=== PATIENT | female | born 2000 | race Caucasian/White ===

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

== ENCOUNTER 2018-07-12 17:30 | Emergency (ER) | payer OTHER, SELFPAY ==
[~2018-07-12] VITALS: Ht 180.3 cm; Wt 68.0 kg
[2018-07-12 17:34] VITALS: BP 106/66
--- NOTE | 2018-07-12 17:41 | PHYS DOC ---
Past Medical History Past Medical History: Anxiety, Depression Additional Past Medical Histor: LEAKY VALVE, ADHD, SEASONAL ALELRGIES Past Surgical History: Tonsillectomy, Other Additional Past Surgical Histo: ADENOIDS REMOVED Alcohol Use: None Drug Use: None Adult General Chief Complaint Chief Complaint: THUMB HPI HPI Patient is a 18 year old female presents to the ED complaining of right thumb injury times one hour ago. Patient states that she was working on her truck and her right thumb got caught and bent back. Describes the pain as sharp. Rates the pain as 6 out of 10. Denies laceration, paresthesias, weakness, fever, nailbed injury or swelling. Review of Systems Review of Systems Constitutional: Denies fever or chills [] Eyes: Denies change in visual acuity, redness, or eye pain [] HENT: Denies nasal congestion or sore throat [] Respiratory: Denies cough or shortness of breath [] Cardiovascular: No additional information not addressed in HPI [] GI: Denies abdominal pain, nausea, vomiting, bloody stools or diarrhea [] : Denies dysuria or hematuria [] Musculoskeletal: Complains of thumb injury. Denies back pain or joint pain [] Integument: Denies rash or skin lesions [] Neurologic: Denies headache, focal weakness or sensory changes [] All other systems were reviewed and found to be within normal limits, except as documented in this note. Allergies Allergies Allergies Coded Allergies Type Severity Reaction Last Updated Verified No Known Drug Allergies 04/21/13 No Physical Exam Physical Exam Constitutional: Well developed, well nourished, no acute distress, non-toxic appearance. [] HENT: Normocephalic, atraumatic Neck: Normal range of motion, no tenderness, supple, no stridor. [] Skin: Warm, dry, no erythema, no rash. [] Back: No tenderness, no CVA tenderness. [] Extremities: mild right thumb proximal metacarpal tenderness. no cyanosis, no clubbing, ROM intact, no edema. [] Neurologic: Alert and oriented X 3, normal motor function, normal sensory function, no focal deficits noted. [] Psychologic: Affect normal, judgement normal, mood normal. [] Current Patient Data Vital Signs Vital Signs Date Time Temp Pulse Resp B/P (MAP) Pulse Ox O2 Delivery O2 Flow Rate FiO2 07/12/18 17:34 98.6 102 14 106/66 (79) 97 Room Air 98.6 EKG EKG [] Radiology/Procedures Radiology/Procedures []Negative imaging. (read by attending physician.) Course & Med Decision Making Course & Med Decision Making Pertinent Labs and Imaging studies reviewed. (See chart for details) []Discussed imaging with patient. No acute findings. Patient had Sriram wrap placed. Discussed symptomatic treatment and follow-up with orthopedics if pain persists. Provided contact information/education. Discussed reasons to return to the ED. Patient understands and agrees with plan. Dragon Disclaimer Dragon Disclaimer This electronic medical record was generated, in whole or in part, using a voice recognition dictation system. Departure Departure Impression: Primary Impression: Thumb sprain Disposition: 01 HOME, SELF-CARE Condition: IMPROVED Referrals: ROSA CUNHA MD (PCP) WOLFGANG MILLAN II, MD Patient Instructions: Thumb Sprain SERGEI REYES July 12, 2018 17:41
--- NOTE | 2018-07-13 01:13 | RAD ---
Three-view right hand radiographs 07/12/2018 CLINICAL HISTORY: Injury to the right thumb. PA, lateral and oblique digital radiographs of the right hand were obtained. No fracture or dislocation is seen. No radiopaque foreign body is noted. IMPRESSION: No fracture or dislocation of the right hand is seen. Electronically signed by: Dimitri Cabrera MD (07/13/2018 1:10 AM) [facility]
== END 2018-07-12 18:53 | disposition home or self-care (01) ==
LOC: ER 17:30
DX: S63.681A Other sprain of right thumb, initial encounter (principal); F41.9 Anxiety disorder, unspecified; F32.9 Major depressive disorder, single episode, unspecified; Z90.89 Acquired absence of other organs; W23.0XXA Caught, crushed, jammed, or pinched between moving objects, initial encounter; Y93.89 Activity, other specified; Y92.89 Other specified places as the place of occurrence of the external cause; Y99.0 Civilian activity done for income or pay
CPT/HCPCS: 73130; 99284

== ENCOUNTER 2019-04-13 13:57 | Emergency (ER) | payer SELFPAY ==
[~2019-04-13] VITALS: Ht 182.9 cm; Wt 74.0 kg
[2019-04-13 14:03] VITALS: BP 116/60
[2019-04-13] MEDS ORDERED: ALBU2.5V8 IH (14:52)
[2019-04-13] MEDS ORDERED: BENZ100C PO (14:52)
[2019-04-13] MEDS ORDERED: PRED50TA PO (14:52)
--- NOTE | 2019-04-13 14:52 | PHYS DOC ---
Past Medical History Past Medical History: No Pertinent History Additional Past Medical Histor: LEAKY VALVE, ADHD, SEASONAL ALELRGIES Past Surgical History: Tonsillectomy, Other Additional Past Surgical Histo: ADENOIDS REMOVED Smoking Status: Current Every Day Smoker Additional Information: 0.25 PPD Alcohol Use: Occasionally Drug Use: None Adult General Chief Complaint Chief Complaint: COUGH HPI HPI Patient is a 18 year old female who presents to the ED today complaining of cough, sore throat, body aches, chills, symptoms began 3 days ago. Patient also reports chest pain only when she coughs. Denies being on any hormones. Denies any personal family history of PEs. Denies any recent hospitalization. Review of Systems Review of Systems Constitutional: Reports fever Eyes: Denies change in visual acuity, redness, or eye pain [] HENT: Reports sore throat. Denies nasal congestion Respiratory: Reports coughing Denies shortness of breath [] Cardiovascular: reports chest pain only when he coughs GI: Denies abdominal pain, nausea, vomiting, bloody stools or diarrhea [] : Denies dysuria or hematuria [] Musculoskeletal: Denies back pain or joint pain [] Integument: Denies rash or skin lesions [] Neurologic: Denies headache, focal weakness or sensory changes [] All other systems were reviewed and found to be within normal limits, except as documented in this note. Allergies Allergies Allergies Coded Allergies Type Severity Reaction Last Updated Verified No Known Drug Allergies 04/21/13 No Physical Exam Physical Exam Constitutional: Well developed, well nourished, no acute distress, non-toxic appearance. [] HENT: Normocephalic, atraumatic, bilateral external ears normal, oropharynx moist, no oral exudates, nose normal. [] Eyes: PERRLA, EOMI, conjunctiva normal, no discharge. [] Neck: Normal range of motion, no tenderness, supple, no stridor. [] Cardiovascular:Heart rate regular rhythm, no murmur [] Lungs & Thorax: Bilateral breath sounds clear to auscultation [] Abdomen: Bowel sounds normal, soft, no tenderness, no masses, no pulsatile masses. [] Skin: Warm, dry, no erythema, no rash. [] Back: No tenderness, no CVA tenderness. [] Extremities: No tenderness, no cyanosis, no clubbing, ROM intact, no edema. [] Neurologic: Alert and oriented X 3, normal motor function, normal sensory function, no focal deficits noted. [] Psychologic: Affect normal, judgement normal, mood normal. [] Current Patient Data Vital Signs Vital Signs Date Time Temp Pulse Resp B/P (MAP) Pulse Ox O2 Delivery O2 Flow Rate FiO2 04/13/19 14:03 98.2 80 17 116/60 (78) 99 Room Air 98.2 EKG EKG [] Radiology/Procedures Radiology/Procedures [] Course & Med Decision Making Course & Med Decision Making Pertinent Labs and Imaging studies reviewed. (See chart for details) This is a 18-year-old female patient presented to the ED today with viral-like symptoms including subjective fevers, cough, sore throat, body aches symptoms began 3 days ago . Patient is afebrile in the ED. Dragon Disclaimer Dragon Disclaimer This electronic medical record was generated, in whole or in part, using a voice recognition dictation system. Departure Departure Impression: Primary Impression: Fever Additional Impressions: URI (upper respiratory infection) Cough Disposition: 01 HOME, SELF-CARE Condition: STABLE Referrals: ROSA CUNHA MD (PCP) follow up in 1-2 weeks Patient Instructions: Cough, Adult, [id number], Fever, Adult, [id number], Upper Respiratory Infection, Adult, [id number] Additional Instructions: You were seen in the emergency room with symptoms suspicious of a viral illness. Please take the prescribed medications as ordered. Please follow-up with your doctor in 1-2 weeks. Scripts Benzonatate (TESSALON PERLE) 100 Mg Capsule 1 CAP PO TID, #30 CAP Prov: TIA MARTIN APRN 04/13/19 Albuterol Sulfate (Proair Hfa) 8.5 Gm Hfa.aer.ad 2 PUFF IH PRN Q4-6HRS PRN for wheezing for 21 Days, #1 INHALER 0 Refills Prov: TIA MARTIN PERSONAL [employer]OTHING LAUNDRY AIDE 04/13/19 Prednisone (PREDNISONE) 50 Mg Tablet 1 TAB PO DAILY, #5 TAB Prov: SHEILAUNGATIA PERSONAL [employer]OTHING LAUNDRY AIDE 04/13/19 Problem Qualifiers Primary Impression: Fever Fever type: unspecified Qualified Codes: R50.9 - Fever, unspecified Additional Impressions: URI (upper respiratory infection) URI type: unspecified URI Qualified Codes: J06.9 - Acute upper respiratory infection, unspecified TIA MARTIN APRN Apr 13, 2019 14:52
== END 2019-04-13 14:58 | disposition home or self-care (01) ==
LOC: ER 13:57
DX: J06.9 Acute upper respiratory infection, unspecified (principal); R50.9 Fever, unspecified; R05 Cough; R07.89 Other chest pain; F17.200 Nicotine dependence, unspecified, uncomplicated; Z90.89 Acquired absence of other organs; Z98.890 Other specified postprocedural states
CPT/HCPCS: 99284

== ENCOUNTER 2019-07-08 13:53 | Emergency (ER) | payer SELFPAY ==
[~2019-07-08] VITALS: Ht 180.3 cm; Wt 73.0 kg
[~2019-07-08 13:53] MED LIST: ALBU2.5V8 IH; BENZ100C PO; PRED50TA PO
[2019-07-08 14:00] VITALS: BP 116/72
[2019-07-08] MEDS ORDERED: IV NORMAL SALINE 1000ML BAG 1,000 ML IV ONE (14:15)
[2019-07-08 14:46] LABS: CREATININE 1.2 mg/dL (0.6-1.0); GFR 56.7; POTASSIUM 3.5 mmol/L (3.5-5.1)
[2019-07-08 14:46] LABS: BILIRUBIN,URINE NEGATIVE (NEG); CLARITY,URINE CLOUDY; COLOR,URINE YELLOW; NITRITE,URINE POSITIVE (NEG); PROTEIN,URINE NEGATIVE (NEG-TRACE); UROBILINOGEN,URINE 0.2 mg/dL (0.2 mg/dL)
[2019-07-08 14:47] LABS: BASO % 0 % (0-3); EOS % 0 % (0-3); HEMATOCRIT 37.6 % (36.0-47.0); LYMPH # 1.2 x10^3/uL (1.0-4.8); LYMPH % 25 % (24-48); MEAN CORPUSCULAR HEMOGLOBIN 31 pg (25-35); MEAN CORPUSCULAR HGB CONC 34 g/dL (31-37); MEAN CORPUSCULAR VOLUME 90 fL (79-100); MONO # 0.5 x10^3/uL (0.0-1.1); MONO % 11 % (0-9); NEUT # 2.9 x10^3/uL (1.8-7.7); NEUT % 63 % (31-73); PLATELET COUNT 158 x10^3/uL (140-400); RED BLOOD COUNT 4.16 x10^6/uL (3.50-5.40); RED CELL DISTRIBUTION WIDTH 15.6 % (11.5-14.5); WHITE BLOOD COUNT 4.6 x10^3/uL (4.0-11.0)
--- NOTE | 2019-07-08 14:49 | RAD ---
CT head without contrast dated 07/08/2019. No comparison available. CLINICAL INDICATION: Seizures. FINDINGS: Contiguous axial imaging the head was performed from skull base to vertex. No contrast administered. One or more of the following individualized dose reduction techniques were utilized for this examination: 1. Automated exposure control 2. Adjustment of the mA and/or kV according to patient size 3. Use of iterative reconstruction technique. FINDINGS: Ventricles and sulci are within normal limits for age. No midline shift or mass effect. Brain parenchyma is of normal attenuation. No hemorrhage or extra-axial collection. Posterior fossa and brainstem unremarkable. Visualized paranasal sinuses and mastoid air cells are clear. No apparent calvarial abnormality. IMPRESSION: No evidence of acute intracranial abnormality. Electronically signed by: Carlos Jin MD (07/08/2019 2:46 PM) [facility]
[2019-07-08 14:52] LABS: ALBUMIN 3.9 g/dL (3.4-5.0); ALBUMIN/GLOBULIN RATIO 1.1 (1.0-1.7); MAGNESIUM 1.8 mg/dL (1.8-2.4); TOTAL BILIRUBIN 0.9 mg/dL (0.2-1.0); TOTAL PROTEIN 7.4 g/dL (6.4-8.2)
[2019-07-08 14:58] LABS: AMPHETAMINE/METHAMPHETAMINE NEG (NEG); BARBITURATES NEG (NEG); BENZODIAZEPINES NEG (NEG); CANNABINOIDS POS (NEG); COCAINE NEG (NEG); METHADONE NEG (NEG); OPIATES NEG (NEG); PHENCYCLIDINE NEG (NEG)
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
[2019-07-08 15:04] LABS: SQUAMOUS EPITHELIAL CELL,UR MANY /LPF
[2019-07-08 15:05] LABS: BACTERIA,URINE MANY /HPF (0-FEW); RBC,URINE 0 /HPF (0-2)
== END 2019-07-08 15:15 | disposition home or self-care (01) ==
LOC: ER 13:53
DX: R56.9 Unspecified convulsions (principal); F17.200 Nicotine dependence, unspecified, uncomplicated; J30.2 Other seasonal allergic rhinitis; Z90.89 Acquired absence of other organs; Z98.890 Other specified postprocedural states
CPT/HCPCS: 36415; 70450; 80053; 80307; 81001; 81025; 82550; 83735; 85025; 87086; 99284; J7030

== ENCOUNTER 2019-11-01 00:55 | Emergency (ER) | payer SELFPAY ==
[~2019-11-01] VITALS: Ht 180.3 cm; Wt 77.3 kg
[2019-11-01 01:12] LABS: BILIRUBIN,URINE NEGATIVE (NEG); CLARITY,URINE CLEAR; COLOR,URINE YELLOW; NITRITE,URINE NEGATIVE (NEG); PH,URINE 6.5 (<5.0-8.0); PROTEIN,URINE NEGATIVE (NEG-TRACE); UROBILINOGEN,URINE 0.2 mg/dL (0.2 mg/dL)
[2019-11-01 01:18] LABS: SQUAMOUS EPITHELIAL CELL,UR MANY /LPF
--- NOTE | 2019-11-01 01:18 | PHYS DOC ---
Past Medical History Past Medical History: No Pertinent History Additional Past Medical Histor: LEAKY VALVE, ADHD, SEASONAL ALELRGIES Past Surgical History: Tonsillectomy, Other Additional Past Surgical Histo: ADENOIDS REMOVED Smoking Status: Current Every Day Smoker Alcohol Use: Occasionally Drug Use: None General Adult EDM: Chief Complaint: ABDOMINAL PAIN IN HPI: HPI: Patient is a 19 year old female who presents with a chief complaint of lower abdominal cramping. Patient is 9 weeks and has a documented IUP that woke up 1 day ago with lower abdominal pain is described as cramping that is nonradiating. Patient states the pain is intermittently sharp as well. Patient states it feels like her menstrual cycle pain. Patient had some nausea and vomi ting about 4 hours before the pain started but denies any nausea and vomiting currently. Patient denies any urinary symptoms. Patient denies any vaginal bleeding. Symptoms are mildly worsened with palpation. Patient denies any COVID-19 exposures. Patient is a G2, P0 and had a miscarriage last year Review of Systems: Review of Systems: Constitutional: Denies fever or chills. [] Eyes: Denies change in visual acuity. [] HENT: Denies nasal congestion or sore throat. [] Respiratory: Denies cough or shortness of breath. [] Cardiovascular: Denies chest pain or edema. [] GI: Complains of lower abdominal cramping but no nausea, vomiting, bloody stools or diarrhea. [] : Denies dysuria. [] Musculoskeletal: Denies back pain or joint pain. [] Integument: Denies rash. [] Neurologic: Denies headache, focal weakness or sensory changes. [] Endocrine: Denies polyuria or polydipsia. [] Lymphatic: Denies swollen glands. [] Psychiatric: Denies depression or anxiety. [] Heart Score: Risk Factors: Risk Factors: DM, Current or recent (<one month) smoker, HTN, HLP, family history of CAD, obesity. Risk Scores: Score 0 - 3: 2.5% MACE over next 6 weeks - Discharge Home Score 4 - 6: 20.3% MACE over next 6 weeks - Admit for Clinical Observation Score 7 - 10: 72.7% MACE over next 6 weeks - Early Invasive Strategies Allergies: Allergies: Allergies Coded Allergies Type Severity Reaction Last Updated Verified No Known Drug Allergies 04/21/13 No Physical Exam: PE: Constitutional: Well developed, well nourished, no acute distress, non-toxic appearance. [] HENT: Normocephalic, atraumatic, bilateral external ears normal, no trismus, nose normal. [] Eyes: PERRLA, EOMI, conjunctiva normal, no discharge. [] Neck: Normal range of motion, no tenderness, supple, no stridor. [] Cardiovascular:Heart rate regular rhythm, cap refill brisk Lungs & Thorax: Bilateral breath sounds clear, no respiratory distress Abdomen: Soft with very minimal lower abdominal tenderness, no guarding, no rebound, no masses, no pulsatile masses. [] Skin: Warm, dry, no erythema, no rash. [] Back: No tenderness, no CVA tenderness. [] Extremities: No tenderness, no cyanosis, no clubbing, ROM intact, no edema. [] Neurologic: Alert and oriented X 3, normal motor function, normal sensory function, no focal deficits noted. [] Psychologic: Affect normal, judgement normal, mood normal. [] Current Patient Data: Labs: Laboratory Tests Test 11/01/19 01:11 POC Urine HCG, Qualitative Hcg positive (Negative) Vital Signs: Vital Signs Date Time Temp Pulse Resp B/P (MAP) Pulse Ox O2 Delivery O2 Flow Rate FiO2 11/01/19 01:08 98.5 93 16 112/73 (86) 97 Room Air 98.5 EKG: EKG: [] Radiology/Procedures: Radiology/Procedures: [][facility] [address] [place], [place] [id number] IMAGING REPORT Signed PATIENT: DEDE WALDEN AACCOUNT: [id number] : 2000 LOCATION: ER AGE: 19 SEX: F EXAM STATUS: REG ER ORD. PHYSICIAN: ROGERS DIXON MD REASON: 9 week preg pain PROCEDURE: OB <14 WKS W/TV Examination: Obstetric ultrasound less than 14 weeks HISTORY: History of , abdominal pain COMPARISON: None available FINDINGS: The uterus measures 10.0 x 7.6 x 6.2 cm. The right ovary measures 2.9 x 1.2 x 1.5 cm. The left ovary measures 4.7 x 2.1 x 2.7 cm. There is a cystic structure identified in the left ovary measuring 2 cm containing some echogenicity within. Intrauterine gestational sac is identified. Single living intrauterine identified with heart rate of 165 bpm. The crown-rump length measures 3.1 cm corresponding to 10 weeks and 0 days Clinical age is 10 weeks and 2 days with expected date of delivery by LMP 05/27/2020. Ultrasound age is 10 weeks and 0 days with estimated delivery by ultrasound 05/29/2020. IMPRESSION: 1. Single living intrauterine described above. 2. 2 cm cystic structure identified in the left ovary containing some echogenicity could be hemorrhagic cyst or corpus corpus luteal cyst. Electronically signed by: Elliott Escobedo MD (11/01/2019 2:06 AM) [id number] DICTATED and SIGNED BY: ELLIOTT ESCOBEDO MD DATE: 11/01/19 0206 Course & Med Decision Making: Course & Med Decision Making Pertinent Labs and Imaging studies reviewed. (See chart for details) [] 19-year-old female that is approximately 10 weeks presents with lower abdominal pain. Ultrasound is reassuring. Abdominal exam is soft and nonsurgical, clinically doubt appendicitis. Most likely this patient has round ligament pain or discomfort of . Patient was given return precautions and is stable for discharge outpatient follow-up. Dragon Disclaimer: Dragdanielle Disclaimer: This electronic medical record was generated, in whole or in part, using a voice recognition dictation system. Departure Departure Impression: Primary Impression: Pelvic pain affecting Additional Impression: Threatened miscarriage Disposition: 01 HOME, SELF-CARE Condition: STABLE Referrals: ROSA CUNHA MD (PCP) or your ob in 2-3 days Patient Instructions: Pelvic Pain, Female, Threatened Miscarriage Additional Instructions: EMERGENCY DEPARTMENT GENERAL DISCHARGE INSTRUCTIONS THANK YOU for coming to [facility] Emergency Department (ED) today and trusting us with your care. We trust that you had a positive experience in our Emergency Department. If you wish to speak to the department Management you can contact the geography department chair at . YOUR FOLLOW UP INSTRUCTIONS ARE FOLLOWS: Do you have a private doctor? If you do not have a private doctor, please ask for a resource list of physicians or clinics that may be able to assist you with follow up care. The Emergency Physician has interpreted your x-rays. The X-ray specialist will also review them. If there is a change in the findings you will be notified in 48 hours when at all possible. A lab test or lab culture may have been done, your results will be reviewed and you will be notified if you need a change in treatment. ADDITIONAL INSTRUCTIONS AND INFORMATION Your care today has been supervised by a physician who is specially trained in emergency care. Many problems require more than one evaluation for a complete diagnosis and treatment. We recommend that you schedule your follow up appointment as recommended to ensure complete treatment of your illness or injury. If you are unable to obtain follow up care and continue to have a problem, or if your condition worsens we recommend that you return to the ED. We are not able to safely determine your condition over the phone nor are we able to give sound medical advice over the phone. For these safety reasons, if you call for medical advice we will ask you to come to the ED for further evaluation If you have any questions regarding these discharge instructions please call the ED at . SAFETY INFORMATION In the interest of safety, wellness, and injury prevention; we encourage you to wear your seatbelt, if you smoke; quit smoking, and we encourage your family to use protective helmet for bicycling and other sporting events that present an increased risk for head injury. IF YOUR SYMPTOMS WORSEN OR NEW SYMPTOMS DEVELOP, OR YOU HAVE CONCERNS ABOUT YOUR CONDITION; OR IF YOUR CONDITION WORSENS WHILE YOU ARE WAITING FOR YOUR FOLLOW UP APPOINTMENT; EITHER CONTACT YOUR PRIMARY CARE DOCTOR, THE PHYSICIAN WHOSE NAME AND NUMBER YOU WERE GIVEN, OR RETURN TO THE ED IMMEDIATELY. Justicifation of Admission Dx: Justifications for Admission: Justification of Admission Dx: N/A ROGERS DIXON MD Nov 01, 2019 01:18
[2019-11-01 01:19] LABS: BACTERIA,URINE FEW /HPF (0-FEW); RBC,URINE 0 /HPF (0-2); WBC,URINE RARE /HPF (0-4)
--- NOTE | 2019-11-01 02:08 | RAD ---
Examination: Obstetric ultrasound less than 14 weeks HISTORY: History of , abdominal pain COMPARISON: None available FINDINGS: The uterus measures 10.0 x 7.6 x 6.2 cm. The right ovary measures 2.9 x 1.2 x 1.5 cm. The left ovary measures 4.7 x 2.1 x 2.7 cm. There is a cystic structure identified in the left ovary measuring 2 cm containing some echogenicity within. Intrauterine gestational sac is identified. Single living intrauterine identified with heart rate of 165 bpm. The crown-rump length measures 3.1 cm corresponding to 10 weeks and 0 days Clinical age is 10 weeks and 2 days with expected date of delivery by LMP 05/27/2020. Ultrasound age is 10 weeks and 0 days with estimated delivery by ultrasound 05/29/2020. IMPRESSION: 1. Single living intrauterine described above. 2. 2 cm cystic structure identified in the left ovary containing some echogenicity could be hemorrhagic cyst or corpus corpus luteal cyst. Electronically signed by: Elliott Escobedo MD (11/01/2019 2:06 AM) [id number]
[2019-11-01 02:12] LABS: BASO % 0 % (0-3); EOS % 0 % (0-3); HEMATOCRIT 32.8 % (36.0-47.0); HEMOGLOBIN 11.1 g/dL (12.0-15.5); LYMPH # 1.2 x10^3/uL (1.0-4.8); LYMPH % 31 % (24-48); MEAN CORPUSCULAR HEMOGLOBIN 31 pg (25-35); MEAN CORPUSCULAR HGB CONC 34 g/dL (31-37); MEAN CORPUSCULAR VOLUME 91 fL (79-100); MONO # 0.4 x10^3/uL (0.0-1.1); MONO % 9 % (0-9); NEUT # 2.3 x10^3/uL (1.8-7.7); NEUT % 59 % (31-73); PLATELET COUNT 143 x10^3/uL (140-400); WHITE BLOOD COUNT 3.9 x10^3/uL (4.0-11.0)
[2019-11-01 02:20] LABS: CALCIUM 8.8 mg/dL (8.5-10.1); CREATININE 0.7 mg/dL (0.6-1.0); GFR 105.6; POTASSIUM 3.3 mmol/L (3.5-5.1)
[2019-11-01 02:38] VITALS: BP 113/56
== END 2019-11-01 02:54 | disposition home or self-care (01) ==
LOC: ER 00:55
DX: O20.0 Threatened abortion (principal); O99.331 Smoking (tobacco) complicating pregnancy, first trimester; F90.9 Attention-deficit hyperactivity disorder, unspecified type; Z3A.09 9 weeks gestation of pregnancy
CPT/HCPCS: 36415; 76801; 76817; 80048; 81001; 81025; 84702; 85025; 99284

== ENCOUNTER 2021-04-14 01:45 | Emergency (ER) | payer MEDICAID ==
[~2021-04-14] VITALS: Ht 177.8 cm; Wt 86.3 kg
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
[2021-04-14 02:04] LABS: BASO % 1 % (0-3); EOS % 1 % (0-3); HEMATOCRIT 39.3 % (36.0-47.0); HEMOGLOBIN 13.5 g/dL (12.0-15.5); LYMPH # 1.4 x10^3/uL (1.0-4.8); LYMPH % 32 % (24-48); MEAN CORPUSCULAR HEMOGLOBIN 33 pg (25-35); MEAN CORPUSCULAR HGB CONC 34 g/dL (31-37); MEAN CORPUSCULAR VOLUME 98 fL (79-100); MONO # 0.3 x10^3/uL (0.0-1.1); MONO % 8 % (0-9); NEUT # 2.6 x10^3/uL (1.8-7.7); NEUT % 59 % (31-73); PLATELET COUNT 170 x10^3/uL (140-400); RED BLOOD COUNT 4.04 x10^6/uL (3.50-5.40); RED CELL DISTRIBUTION WIDTH 15.9 % (11.5-14.5); WHITE BLOOD COUNT 4.4 x10^3/uL (4.0-11.0)
[2021-04-14 02:12] LABS: CALCIUM 8.2 mg/dL (8.5-10.1); GFR 69.3; POTASSIUM 3.7 mmol/L (3.5-5.1)
[2021-04-14 02:17] LABS: ALBUMIN 3.9 g/dL (3.4-5.0); TOTAL BILIRUBIN 0.5 mg/dL (0.2-1.0); TOTAL PROTEIN 7.8 g/dL (6.4-8.2)
[2021-04-14 02:18] LABS: PREG TEST PT QUAL NEGATIVE (NEG)
[2021-04-14 02:21] LABS: ACETAMIN < 2 mcg/ml (10-30); ETHANOL < 10 mg/dL (0-10)
[2021-04-14 02:53] LABS: BARBITURATES NEG (NEG); BENZODIAZEPINES POS (NEG); CANNABINOIDS POS (NEG); CLARITY,URINE CLEAR; COCAINE NEG (NEG); COLOR,URINE YELLOW; METHADONE NEG (NEG); OPIATES NEG (NEG); PHENCYCLIDINE NEG (NEG)
[2021-04-14 02:54] LABS: BILIRUBIN,URINE NEGATIVE (NEG)
[2021-04-14 02:55] LABS: NITRITE,URINE NEGATIVE (NEG); PROTEIN,URINE 100 mg/dL (NEG-TRACE); UROBILINOGEN,URINE 0.2 mg/dL (0.2 mg/dL)
[2021-04-14 02:57] LABS: AMPHETAMINE/METHAMPHETAMINE POS (NEG); BACTERIA,URINE FEW /HPF (0-FEW); RBC,URINE 0 /HPF (0-2)
[2021-04-14 05:30] VITALS: BP 105/74
--- NOTE | 2021-04-14 10:11 | EKG ---
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
== END 2021-04-14 05:53 | disposition home or self-care (01) ==
LOC: ER 01:45
DX: T50.7X1A Poisoning by analeptics and opioid receptor antagonists, accidental (unintentional), initial encounter (principal); T65.891A Toxic effect of other specified substances, accidental (unintentional), initial encounter; Z87.891 Personal history of nicotine dependence; F90.9 Attention-deficit hyperactivity disorder, unspecified type; Y92.89 Other specified places as the place of occurrence of the external cause
CPT/HCPCS: 36415; 80053; 80307; 80329; 81001; 84703; 85025; 93005; 99285; G0480

== ENCOUNTER 2021-05-23 07:01 | Emergency (ER) | payer MEDICAID ==
[~2021-05-23] VITALS: Ht 182.9 cm; Wt 77.2 kg
[2021-05-23 07:30] VITALS: BP 129/61
[2021-05-23] MEDS ORDERED: ACETAMINOPHEN 500 MG TABLET PO ONE (08:15)
[2021-05-23] MEDS ORDERED: ONDANSETRON ODT 4 MG TAB.RAPDIS. PO ONE (08:15)
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
--- NOTE | 2021-05-23 08:59 | RAD ---
US OB <14 WKS +TV Clinical Indication: Pelvic pain. Patient is incarcerated, documentation of IUP. Comparison: None. TECHNIQUE: Real-time ultrasound imaging of the pelvis using transabdominal and transvaginal window is performed. Findings: Anteverted uterus measures 9 x 6 x 7 cm. There is trace pelvic free fluid. There is intrauterine gestational sac with a normal shape. No perigestational hemorrhage is identifie d. Internally a yolk sac and pole are identified. There are echoes within the amniotic fluid th at may be debris. [place]-rump length is 1.6 cm, 8 weeks 0 days. Estimated heart rate is 153 bpm. EDC ultrasound is January 02, 2022. The maternal ovaries demonstrate normal blood flow. No evidence of adnexal mass. IMPRESSION: Single live intrauterine gestation, estimated sonographic gestational age is 8 weeks and 0 days. Electronically signed by: Panfilo Hackett MD (05/23/2021 8:56 AM) [id number]
[2021-05-23 09:42] LABS: BACTERIA,URINE FEW /HPF (0-FEW); RBC,URINE 0 /HPF (0-2); WBC,URINE 0 /HPF (0-4)
== END 2021-05-23 09:54 ==
LOC: ER 07:01
DX: O21.9 Vomiting of pregnancy, unspecified (principal); R51.9 Headache, unspecified; R10.9 Unspecified abdominal pain; F17.200 Nicotine dependence, unspecified, uncomplicated; F43.10 Post-traumatic stress disorder, unspecified; Z3A.08 8 weeks gestation of pregnancy
CPT/HCPCS: 76801; 76817; 81001; 81025; 99284